=== PATIENT | female | born 1955 | race Caucasian/White ===

== ENCOUNTER 2017-06-19 12:10 | Emergency (ER) | payer BC ==
--- NOTE | 2017-06-19 13:03 | RAD ---
RIGHT ELBOW FOUR VIEWS: HISTORY: The patient is status post fall with right elbow pain. FINDINGS: There is a fracture involving the radial neck. There is no joint effusion seen. The bones appear de mineralized. IMPRESSION: Radial neck fracture. POS: [facility]
--- NOTE | 2017-06-19 13:04 | RAD ---
RIGHT ANKLE 3 VIEWS: HISTORY: Injury. Pain. COMPARISON: None. FINDINGS: Ankle mortise is intact. Joint space is preserved. There is an incompletely evaluated fracture of t he base of the 5th metatarsal. Dedicated right foot radiograph is recommended. IMPRESSION: Base of 5th metatarsal fracture. POS: [facility]
[2017-06-19] MEDS ORDERED: traMADol HCl 50 MG TAB ONE (13:48)
[2017-06-19] MEDS ORDERED: Ibuprofen 200 MG TAB ONE (13:48)
--- NOTE | 2017-06-19 14:34 | RAD ---
RIGHT WRIST 3 VIEWS: HISTORY: Wrist injury. FINDINGS: Bones appear somewhat demineralized. There are some minimal arthritic changes of the wrist. There a re some degenerative changes of the triscaphe and 1st carpometacarpal joint space. I do not see any definite signs of fracture. If trauma is suspected to the navicular bone, followup in approximately 7-10 days would be recommended. IMPRESSION: No evidence of fracture. POS: [facility]
== END 2017-06-19 15:20 | disposition home or self-care (01) ==
LOC: ERS 12:10
DX: S92.351A Displaced fracture of fifth metatarsal bone, right foot, initial encounter for closed fracture (principal); S52.121A Displaced fracture of head of right radius, initial encounter for closed fracture; J45.909 Unspecified asthma, uncomplicated; Z79.899 Other long term (current) drug therapy; W20.8XXA Other cause of strike by thrown, projected or falling object, initial encounter
CPT/HCPCS: 24650; 28470